=== PATIENT | female | born 1935 | race Hispanic/Latino ===

== ENCOUNTER 2017-02-19 19:59 | Observation (INO) | payer BC, MEDICARE, OTHER ==
[2017-02-19 20:08] VITALS: BMI 30.7
[2017-02-19 20:24] LABS: BASO # 0.02 K/mm3 (0.0-2.0); BASO % 0.2 % (0.0-3.0); EOS % 0.2 % (1.5-5.0); GRAN # 8.31 (1.4-6.5); GRAN % 68.1 % (50.0-68.0); HEMATOCRIT 38.5 % (36.0-48.0); LYMPH # 3.3 (1.2-3.4); LYMPH % 26.8 % (22.0-35.0); MEAN CELL VOLUME 88.3 fl (80.0-105.0); MEAN CORPUSCULAR HEMOGLOBIN 31.2 pg (25.0-35.0); MEAN CORPUSCULAR HGB CONC 35.3 g/dl (31.0-37.0); MEAN PLATELET VOLUME 9.6 fl (7.0-11.0); MONO # 0.6 (0.1-0.6); MONO % 4.7 % (1.0-6.0); RED CELL DISTRIBUTION WIDTH 13.3 % (11.5-14.5); WHITE BLOOD COUNT 12.2 10^3/ul (4.5-11.0)
[2017-02-19 20:37] LABS: ALB/GLOB RATIO 1.3 (1.1-1.8); ALKALINE PHOSPHATASE 102 U/L (38-126); ALT/SGPT 32 U/L (7-56); AST/SGOT 29 U/L (14-36); BILIRUBIN,TOTAL 0.5 mg/dL (0.2-1.3); BLOOD UREA NITROGEN 14 mg/dL (7-21); CALCIUM 9.4 mg/dL (8.4-10.5); CARBON DIOXIDE 24 mmol/L (21-33); CHLORIDE 94 mmol/L (98-107); GFR AFRICAN-AMERICAN > 60; GLUCOSE,RANDOM 185 mg/dL (70-110); INR 0.97 (0.93-1.08); PARTIAL THROMBOPLASTIN TIME 26.9 Seconds (23.7-30.8); POTASSIUM 4.2 mmol/L (3.6-5.0); SODIUM 131 mmol/L (132-148); TOTAL PROTEIN 7.4 g/dL (5.8-8.3)
[2017-02-19 20:38] LABS: AMYLASE 66 U/L (35-125); LIPASE 114 U/L (23-300)
[2017-02-19 20:51] LABS: TROPONIN I < 0.01 ng/mL
--- NOTE | 2017-02-19 21:11 | ED PDOC ---
Arrival/HPI - General Chief Complaint: Chest Pain Time Seen by Provider: 02/19/17 20:13 Historian: Patient - History of Present Illness Narrative History of Present Illness (Text): 02/19/17 20:15 Anisha Ruiz is an 81 year old female, whose past medical history includes hypertension, COPD, and coronary artery disease s/p angioplasty, who presents to the Emergency department complaining of chest pain. Patient states 3 hours prior to arrival she began experiencing chest pain then had 1 episode of vomiting and pain resolved. Patient reports she currently feels nauseous. Patient denies any fever, chills, shortness of breath, diarrhea, urinary symptoms, back pain, neck pain, headache, dizziness, or any other complaints. PMD: Dr. 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) Symptom Onset: Gradual Symptom Course: Unchanged Activities at Onset: Light Context: Home Past Medical History - Provider Review Nursing Documentation Reviewed: Yes - Infectious Disease Hx of Infectious Diseases: None - Cardiac Hx Cardiac Disorders: Yes Hx Hypertension: Yes - Pulmonary Hx Chronic Obstructive Pulmonary Disease (COPD): Yes - Neurological Hx Neurological Disorder: No - HEENT Hx HEENT Disorder: No - Renal Hx Renal Disorder: No - Endocrine/Metabolic Hx Endocrine Disorders: No - Hematological/Oncological Hx Blood Disorders: No - Integumentary Hx Dermatological Disorder: No - Musculoskeletal/Rheumatological Hx Musculoskeletal Disorders: No - Gastrointestinal Hx Gastrointestinal Disorders: No - Genitourinary/Gynecological Hx Genitourinary Disorders: No - Psychiatric Hx Psychophysiologic Disorder: No Hx Substance Use: No - Surgical History Hx Cholecystectomy: Yes Hx Coronary Stent: Yes Hx Tonsillectomy: Yes Other/Comment: Dental implants - Anesthesia Hx Anesthesia: Yes Hx Anesthesia Reactions: No Hx Malignant Hyperthermia: No Family/Social History - Physician Review Nursing Documentation Reviewed: Yes Family/Social History: Unknown Family HX Smoking Status: Never Smoked Hx Alcohol Use: No Hx Substance Use: No Allergies/Home Meds Allergies/Adverse Reactions: Allergies No Known Allergies Allergy (Verified 05/27/16 10:42) Home Medications: Home Meds Medication Instructions Recorded Confirmed Amlodipine/Valsartan [Exforge 1 each PO DAILY 05/27/16 02/19/17 5-320 mg Tablet] Aspirin [Ecotrin] 81 mg PO DAILY 05/27/16 02/19/17 Budesonide/Formoterol Fumarate 1 aer IH DAILY 05/27/16 02/19/17 [Symbicort] Metoprolol Succinate [Toprol XL] 50 mg PO DAILY 05/27/16 02/19/17 Tiotropium [Spiriva] 18 mcg IH DAILY 05/27/16 02/19/17 Review of Systems - Physician Review All systems were reviewed & negative as marked: Yes - Review of Systems Constitutional: Normal. absent: Fevers Eyes: Normal ENT: Normal Respiratory: Normal. absent: SOB Cardiovascular: Chest Pain Gastrointestinal: Nausea, Vomiting. absent: Diarrhea Genitourinary Female: Normal. absent: Dysuria, Frequency, Hematuria, Urine Output Changes Musculoskeletal: Normal. absent: Back Pain, Neck Pain Skin: Normal. absent: Rash Neurological: Normal. absent: Headache, Dizziness Endocrine: Normal Hemo/Lymphatic: Normal Psychiatric: Normal Physical Exam Vital Signs Reviewed: Yes Vital Signs Temp Pulse Resp BP Pulse Ox 02/19/17 20:28 97.6 F 90 18 153/78 H 95 Temperature: Afebrile Blood Pressure: Normal Pulse: Regular Respiratory Rate: Normal Appearance: Positive for: Well-Appearing, Non-Toxic, Comfortable Pain Distress: None Mental Status: Positive for: Alert and Oriented X 3 - Systems Exam Head: Present: Atraumatic, Normocephalic Pupils: Present: PERRL Extroacular Muscles: Present: EOMI Conjunctiva: Present: Normal Mouth: Present: Moist Mucous Membranes Neck: Present: Normal Range of Motion Respiratory/Chest: Present: Clear to Auscultation, Good Air Exchange. No: Respiratory Distress, Accessory Muscle Use Cardiovascular: Present: Regular Rate and Rhythm, Normal S1, S2. No: Murmurs Abdomen: Present: Normal Bowel Sounds. No: Tenderness, Distention, Peritoneal Signs Back: Present: Normal Inspection Upper Extremity: Present: Normal Inspection. No: Cyanosis, Edema Lower Extremity: Present: Normal Inspection. No: Edema Neurological: Present: GCS=15, CN II-XII Intact, Speech Normal Skin: Present: Warm, Dry, Normal Color. No: Rashes Psychiatric: Present: Alert, Oriented x 3, Normal Insight, Normal Concentration Medical Decision Making ED Course and Treatment: 02/19/17 20:15 Impression: 81 year old female complaining of chest pain, nausea, and vomiting. Differential Diagnosis included but are not limited to: chest pain vs. ACS vs. biliary colic Plan: -- EKG -- Chest X-ray -- Labs, cardiac enzymes, amylase, lipase -- UA -- Reassess and disposition Prior Visits: Notes and results from previous visits were reviewed. On 05/27/2016, pt was seen in the ED for left-sided chest pain. Pt was admitted to the hospital for further evaluation. Progress Notes: Reviewed EKG, NSR at [address] bpm[address] Non-specific ST/T wave changes. 02/19/17 21:00 Reviewed radiology, Chest X-ray shows no acute processes. 02/19/17 21:[address] Topete, covering for Dr. Savage, who is aware and agrees with plan. Pt will go to Telemetry observation for chest pain. Pt in no acute distress. Discussed results with pt, who is aware and verbalizes understanding. - Lab Interpretations Lab Results: 02/19/17 20:15 02/19/17 20:15 Lab Results 02/19/17 20:15: Sodium 131 L, Potassium 4.2, Chloride 94 L, Carbon Dioxide 24, Anion Gap 17, BUN 14, Creatinine 0.7, Est GFR ( Amer) > 60, Est GFR (Non- Af Amer) > 60, Random Glucose 185 H, Calcium 9.4, Total Bilirubin 0.5, AST 29, ALT 32, Alkaline Phosphatase 102, Lactate Dehydrogenase 439, Total Creatine Kinase 71, Troponin I < 0.01, Total Protein 7.4, Albumin 4.2, Globulin 3.2, Albumin/Globulin Ratio 1.3, Amylase 66, Lipase 114 02/19/17 20:15: PT 10.5, INR 0.97, APTT 26.9 02/19/17 20:15: WBC 12.2 H D, RBC 4.36, Hgb 13.6, Hct 38.5, MCV 88.3, MCH 31.2, MCHC 35.3, RDW 13.3, Plt Count 258, MPV 9.6, Gran % 68.1 H, Lymph % (Auto) 26.8 , [place] % (Auto) 4.7, Eos % (Auto) 0.2 L, Baso % (Auto) 0.2, Gran # 8.31 H, Lymph # 3.3, [place] # 0.6, Eos # 0.0, Baso # 0.02 I have reviewed the lab results: Yes - RAD Interpretation Radiology Orders: 02/19/17 20:19 CHEST PORTABLE [RAD] Stat Site Safety Representative: ED Physician - EKG Interpretation Interpreted by ED Physician: Yes Type: 12 lead EKG - Medication Orders Current Medication Orders: Discontinued Medications Ondansetron HCl (Zofran Inj) 4 mg IVP STAT STA Stop: 02/19/17 21:08 Last Admin: 02/19/17 21:39 Dose: 4 mg Pantoprazole Sodium (Protonix Inj) 40 mg IVP ONCE STA Stop: 02/19/17 21:08 Last Admin: 02/19/17 21:39 Dose: 40 mg - Scribe Statement The provider has reviewed the documentation as recorded by the Vishnuibalberto Schmid All medical record entries made by the Alexey were at my direction and personally dictated by me. I have reviewed the chart and agree that the record accurately reflects my personal performance of the history, physical exam, medical decision making, and the department course for this patient. I have also personally directed, reviewed, and agree with the discharge instructions and disposition. Disposition/Present on Arrival - Present on Arrival History of DVT/PE: No History of Uncontrolled Diabetes: No Urinary Catheter: No History of Decub. Ulcer: No History Surgical Site Infection Following: None - Disposition Referrals: Augustin Lemos MD [Primary Care Provider] - Follow up with primary Forms: [employer] ([place]ian)
[2017-02-19 23:46] LABS: PH,URINE 7.5 (4.7-8.0); URINE BILIRUBIN NEGATIVE (NEGATIVE); URINE BLOOD NEGATIVE (NEGATIVE); URINE GLUCOSE (UA) NEGATIVE (NEGATIVE); URINE KETONE NEGATIVE (NEGATIVE); URINE LEUKOCYTE ESTERASE NEGATIVE Leu/uL (NEGATIVE); URINE PROTEIN NEGATIVE mg/dL (<30 mg/dL); URINE UROBILINOGEN 0.2 E.U./dL (<1 E.U./dL)
[2017-02-19 23:58] LABS: URINE APPEARANCE CLEAR (CLEAR); URINE COLOR YELLOW (YELLOW)
[2017-02-20 06:28] VITALS: BP 144/61; RESP 18; TEMP 98.4; O2SAT 94
--- NOTE | 2017-02-20 09:19 | RAD ---
HISTORY: cp COMPARISON: Chest x-ray performed 05/27/16 TECHNIQUE: Chest, one view. FINDINGS: Examination limited by habitus and hypoinflation. LUNGS: Bibasilar atelectasis. Biapical pleural thickening. Please note that chest x-ray has limited sensitivity for the detection of pulmonary masses. PLEURA: No significant pleural effusion identified. No definite pneumothorax . CARDIOVASCULAR: Cardiomegaly. Dense atherosclerotic calcifications of the aortic knob. OSSEOUS STRUCTURES: Degenerative changes. VISUALIZED UPPER ABDOMEN: Unremarkable. OTHER FINDINGS: None. IMPRESSION: Bibasilar atelectasis. Biapical pleural thickening. Cardiomegaly. Dense atherosclerotic calcifications.
[2017-02-20] MEDS ORDERED: Metoprolol Succinate 50 mg XL Tab PO SCH (10:00)
[2017-02-20] MEDS ORDERED: Tiotropium 18 mcg Cap For Inhalation IH SCH (10:00)
[2017-02-20] MEDS ORDERED: Budesonide/Formoterol Fumarate [Symbicort 160-4.5 Mcg Inhaler] (HOME MED) IH SCH (10:00)
[2017-02-20 11:21] VITALS: PULSE 68
--- NOTE | 2017-02-20 15:27 | CON ---
DATE: 02/20/2017 REQUESTING PHYSICIAN: Dr. Topete REASON FOR CONSULTATION: Chest discomfort. HISTORY OF PRESENT ILLNESS: This is an 81-year-old woman well known to me with history of coronary artery disease, status post remote PCI who presented with chest discomfort yesterday. She states that she was not feeling well for several hours before presentation. She had some retrosternal discomfort. She also felt somewhat nauseated. She presented to the emergency room. Her electrocardiogram was initially unremarkable. She vomited once in the hospital and her symptoms improved and currently feels comfortable. She does have some mild retrosternal soreness. She has longstanding history of gastroesophageal reflux disease, COPD, and hypertension. PAST MEDICAL HISTORY: As noted. SOCIAL HISTORY: She does not smoke or drink. She is . MEDICATIONS: At home includes aspirin 81 mg daily, Exforge 5/320 mg daily, Symbicort, Toprol-XL 50 mg daily, and Spiriva. ALLERGIES: NONE. FAMILY HISTORY: Both parents are from age-related illness. REVIEW OF SYSTEMS: A 10-point review of systems is notable for the problems mentioned above. PHYSICAL EXAMINATION: GENERAL: She is an elderly woman who appears comfortable at the present time. VITAL SIGNS: Blood pressure is 144/60 with a pulse of 74 and sinus, respirations are 16, and she is currently afebrile. HEENT: Normocephalic and atraumatic. NECK: Supple. No JVD noted. CHEST: Few scattered rhonchi. HEART: PMI in normal position. No pathological murmurs, rubs, or gallops noted. ABDOMEN: Soft and nontender. Normoactive bowel sounds. EXTREMITIES: No clubbing, cyanosis, or edema. SKIN: Warm and dry. PSYCHIATRIC: Normal mood and affect. NEUROLOGICAL: Alert and oriented x3. No gross motor or sensory deficits appreciable. DIAGNOSTIC DATA: Two sets of cardiac enzymes are negative. Sodium is 131, potassium 4.2, and BUN and creatinine are 14 and 0.7. Nonfasting glucose 185. White count 12.2, hemoglobin and hematocrit 13.6 and 38.5 with platelet count of 258,000. Electrocardiogram reveals a sinus rhythm with no significant abnormalities. Chest x-ray reveal borderline cardiac silhouette enlargement with aortic calcification, clear lung humphrey. IMPRESSION: 1. Chest discomfort relieved with episode of vomiting, symptoms found more gastrointestinal in nature than any cardiac. 2. Known coronary artery disease, status post remote myocardial infarction and percutaneous coronary intervention. 3. The rest of problems as noted. RECOMMENDATIONS: At this point from her cardiac standpoint, she appears stable for discharge home. Her current cardiac medications should be continued and the patient will be continued as planned. If she has recurrent symptoms especially they are exertional in nature more urgently evaluation will be planned. Thank you for this consultation. Daryl Espinoza MD [facility] # [phone]
--- NOTE | 2017-02-20 16:22 | CARD ---
APPROVED REPORT EKG Measurement Heart [id number] <Conclusion> Normal sinus rhythm Possible Left atrial enlargement Borderline ECG
--- NOTE | 2017-02-20 17:31 | HP ---
HISTORY OF PRESENT ILLNESS: This is an 81-year-old female, who is coming into the hospital with a past medical history of COPD, hypertension, coronary artery disease with stent. The patient said that she had woken up in the morning and started having chest pain. When she came to the ER, she had an episode of vomiting. She said, she otherwise feels well. She has no complaints of any headaches or dizziness. No nausea, no dysuria or frequency, no nocturia. No weakness in the arms or the legs. REVIEW OF SYSTEMS: All other review of symptoms are within normal limits except what is mentioned. ALLERGIES: NO KNOWN DRUG ALLERGIES. HOME MEDICATIONS: Exforge, aspirin, Symbicort, Toprol, and Spiriva. PAST MEDICAL HISTORY: Coronary artery disease with stenting, COPD. PAST SURGICAL HISTORY: Cataract, tonsillectomy, cholecystectomy. FAMILY HISTORY: Noncontributory. SOCIAL HISTORY: She lives at home. She does not smoke, drink, or use drugs. PHYSICAL EXAMINATION VITAL SIGNS: Temperature is 98.4, pulse is 74, blood pressure is 144/61, respirations 18, and O2 saturation is 94%. Height is 5 feet 4 inches, weight is 179 pounds, BMI is 30.7. GENERAL: The patient lying in bed, uncomfortable, and in no acute distress. HEENT: Atraumatic and normocephalic. Anicteric sclerae. Moist mucosa. [place] conjunctivae. No oral lesions. NECK: No JVD, anterior and posterior adenopathy, thyromegaly, or bruits. CARDIOVASCULAR: S1 and S2 regular. No murmur, rubs, or gallop. LUNGS: Clear to auscultation bilaterally. No wheezes, rales, or rhonchi. ABDOMEN: Bowel sounds are positive. Soft, nontender and nondistended. No hepatosplenomegaly. No rebound and no guarding EXTREMITIES: No cyanosis, clubbing, or edema. NEUROLOGIC: No facial asymmetry. Tongue is midline. No uvula deviation. Power is 5/5 upper extremity and lower extremity. Sensation intact in upper extremity and lower extremity. PSYCHIATRIC: She is awake, alert and oriented x3. No anxiety or depression. She has normal affect. GENITOURINARY: No CVA tenderness. VASCULAR: 2+ pulses in the carotid pulses and pedal pulses. SKIN: No erythema or nodules SPINE: Shows normal curvature. EXTREMITIES: No Cyanosis and clubbing, no edema. LABORATORY DATA: Labs have been reviewed. White count of 12.2, hemoglobin 13.6. Chemistry showed a troponin is 0.01 x2, creatinine is 0.7. Urine shows that the nitrites are negative, the ketones are negative, the proteins are negative. The chest x-ray shows no infiltrates. EKG done shows a sinus rhythm at 90, no ST-T changes. ASSESSMENT: 1. Chest pain. 2. Coronary artery disease. 3. Hypertension. 4. Obese with a BMI of 31. PLAN: The patient is admitted overnight for evaluation. She has troponins that have been negative. She was seen by Dr. Espinoza, he cleared her for discharge. She is going to followup with him as an outpatient. She is going to continue her metoprolol. She is on Exforge for her hypertension. She does not have any nausea. She is able to tolerate her diet. She is going to be discharged home to followup as an outpatient. CONDITION: Stable. ACTIVITY: Increase as tolerated. Nikolas Topete MD
== END 2017-02-20 12:09 | disposition home or self-care (01) ==
LOC: ED 19:59 → ERH 22:22 → 2RNO 23:05
PROVIDERS: ADMIT Internal Medicine Nephrology; ATTEND Internal Medicine Nephrology
DX: K21.9 Gastro-esophageal reflux disease without esophagitis (principal); R07.9 Chest pain, unspecified; J44.9 Chronic obstructive pulmonary disease, unspecified; I25.10 Atherosclerotic heart disease of native coronary artery without angina pectoris; I10 Essential (primary) hypertension; I25.2 Old myocardial infarction; E66.9 Obesity, unspecified; Z79.82 Long term (current) use of aspirin; Z68.31 Body mass index [BMI] 31.0-31.9, adult; Z95.5 Presence of coronary angioplasty implant and graft
CPT/HCPCS: 36415; 71010; 80053; 81003; 82150; 82550; 83615; 83690; 84484; 85025; 85610; 85730; 93005; 96374; 96375; 99285; C9113; G0378; J2405

== ENCOUNTER 2018-08-21 18:13 | Outpatient (CLI) | payer MEDICARE, OTHER | END 2018-08-21 18:14 | disposition home or self-care (01) | LOC: RAD 18:13 ==